=== PATIENT | male | born 1960 | race Caucasian/White ===

== ENCOUNTER 2023-11-28 14:36 | Outpatient (CLI) | payer BC, SELFPAY ==
--- NOTE | ~2023-11-28 | XR_ITS ---
Left foot Technique: AP, oblique, and lateral views were obtained. Clinical History: Pain Findings: No acute fracture or dislocation is seen. Probable chronic, healed fractures of the proxima l third, fourth, and fifth metatarsal shafts.. Joint spaces are preserved without erosive or degenera tive change. Soft tissues are unremarkable. Impression: No acute abnormality evident. Probable chronic healed fracture deformities of the third, fourth, fifth proximal metatarsal shafts. Reviewed, dictated and finalized at location M. Impression: No acute abnormality evident. Probable chronic healed fracture deformities of the third, fourth, fifth proxim al metatarsal shafts.
== END 2023-11-28 14:37 ==
PROVIDERS: PCP Family Medicine; Visit Provider Family Medicine
DX: M79.672 Pain in left foot (principal)
CPT/HCPCS: 73630

== ENCOUNTER 2024-02-19 01:05 | Day surgery (SDC) | payer BC, SELFPAY ==
[2024-01-30 08:47] VITALS: BMI 46.1
[2024-02-19 11:08] VITALS: BP 139/82; PULSE 71; RESP 16; TEMP 36.2; O2SAT 100
[2024-02-19] MEDS: LACTATED RINGERS 1,000 ML 150 ML IV CONT (11:15)
--- NOTE | 2024-02-19 11:37 | WPDANESEPPF ---
Anes - Initial Pre Proc Eval Procedure: Operation Date: 02/19/24 12:30 Proposed Procedures p Screening Colonoscopy - Jarvis Tolentino DO Date/Time: 02/19/24 11:37 Surgeon: Jarvis Tolentino DO Pre Op Diagnosis: Screening for malignant neoplasm of colon Patient Data Age: 63 Gender: M Height: 1.78 m Weight: 141.3 kg Last Vital Signs Temp 97.1 F L 02/19/24 11:08 Pulse 71 02/19/24 11:08 Resp 16 02/19/24 11:08 BP 139/82 02/19/24 11:08 Pulse Ox 100 02/19/24 11:08 O2 Del Method Room Air 02/19/24 11:08 Allergies Allergy/AdvReac Type Severity Reaction Status Date / Time No Known Allergies Allergy Unknown NONE Verified 02/19/24 11:05 Home Medications Medication Instructions Recorded Confirmed Type nystatin 100,000 unit/gram topical 1 applic topical BID gluteal cleft 11/29/23 01/30/24 Rx powder rash #60 grams syringe with needle, safety 3 mL #14 ea 01/30/24 01/30/24 Rx 23 gauge x 1 (BD Integra Syringe) testosterone cypionate 200 mg/mL 200 mg IM .every 2 weeks #10 mL 01/30/24 02/19/24 Rx intramuscular oil (Depo-Testosterone) tirzepatide (weight loss) 5 mg/0.5 5 mg (0.5 mL) subcut WEEKLY #2 mL 01/30/24 02/19/24 Rx mL subcutaneous pen injector (Zepbound) Patient hx anesthesia problems: none Family hx anesthesia problems: none Results Review: All pre-operative results and documents have been reviewed as part of the pre-operative evaluation. [facility] Family History Family History (Updated 11/28/23 @ 13:24 by Dianelys Galeano CMA) Father Cancer of gallbladder Hypertension Mother Breast cancer Depression Anxiety Sibling Alcoholism Sibling Depression Anxiety Son Asthma Grandparent Heart problem Grandparent Cerebrovascular accident Social History Social History Smoking status: Never smoker Alcohol intake: current Drinks per week: 2 Substance use: never Substance use type: does not use Do You Feel Safe in your Home?: Yes Lack of Transportation: No Lack of Food: Never True Current Housing: I Have Housing Concerned About Future Housing: No Difficulty Paying Gas/Electric Bills: No Difficulty Paying for Meds: No Currently Unemployed: No Education: High School Diploma/GED Difficulty w/ Childcare or Family Care: No Living arrangements: with family Occupation/Education: occupation Additional occupation/education comments: [employer] Gender identity (if verbalized by the patient): Male Sexual Orientation (if Verbalized by the Patient): Straight or Heterosexual Spiritual care concerns: No Agree to blood products: Yes Anes - Eval Final PreProcedure Day of Procedure 02/19/24 11:37 Patient weight: normal Heart: regular rate and rhythm Lungs: clear to auscultation Airway: Mallampati scale class II Neurological: alert and oriented Last oral intake: >/= 8 hours ASA classification: III Emergent: no Anesthetic plan: proceed Anesthesia type and monitoring: general GIVS and standard monitoring Results Review: All pre-operative results and documents have been reviewed as part of the pre-operative evaluation. Informed Consent: The patient's anesthetic plan and its attendant risks and benefits were discussed with the patient/family/POA. Questions were solicited and answers provided to the satisfaction of the patient/family/POA.
--- NOTE | 2024-02-19 12:58 | PM.IMHP ---
H&P: HPI History of Present Illness Date/Time: 02/19/24 12:58 Chief Complaint: Screening for colorectal cancer Narrative: 63 yo man presents for colonoscopy. He has had colonoscopies in the past which only showed internal hemorrhoids. He denies any family hx of colon cancer. Review of Systems Review of Systems: All systems reviewed & are unremarkable except as noted in HPI and below Constitutional: Constitutional: Denies chills, Denies fever(s), Denies headache(s) and Denies weight loss Eyes: Eyes: Denies change in vision ENT: Denies dizziness, Denies headache(s), Denies neck mass and Denies throat swelling Cardiovascular: Cardiovascular: Denies chest pain, Denies lightheadedness and Denies dyspnea Respiratory: Respiratory: Denies cough, Denies dyspnea and Denies wheezing Gastrointestinal: Gastrointestinal: Denies abdominal pain, Denies change in bowel habits, Denies nausea and Denies vomiting Genitourinary: Genitourinary: Denies hematuria and Denies dysuria Musculoskeletal: Musculoskeletal: Reports as per HPI Integumentary/Breasts: Skin/Breast: Reports as per HPI Neurologic: Denies dizziness and Denies headache(s) Allergic/Immunologic: Allergic/Immunologic: Denies throat swelling and Denies wheezing [facility] Family History Family History (Updated 11/28/23 @ 13:24 by Dianelys Galeano CMA) Father Cancer of gallbladder Hypertension Mother Breast cancer Depression Anxiety Sibling Alcoholism Sibling Depression Anxiety Son Asthma Grandparent Heart problem Grandparent Cerebrovascular accident Social History Social History Smoking status: Never smoker Alcohol intake: current Drinks per week: 2 Substance use: never Substance use type: does not use Do You Feel Safe in your Home?: Yes Lack of Transportation: No Lack of Food: Never True Current Housing: I Have Housing Concerned About Future Housing: No Difficulty Paying Gas/Electric Bills: No Difficulty Paying for Meds: No Currently Unemployed: No Education: High School Diploma/GED Difficulty w/ Childcare or Family Care: No Living arrangements: with family Occupation/Education: occupation Additional occupation/education comments: [employer] Gender identity (if verbalized by the patient): Male Sexual Orientation (if Verbalized by the Patient): Straight or Heterosexual Spiritual care concerns: No Agree to blood products: Yes Meds Home Medications and Allergies Home Medications Medication Instructions Recorded Confirmed Type nystatin 100,000 unit/gram topical 1 applic topical BID gluteal cleft 11/29/23 01/30/24 Rx powder rash #60 grams syringe with needle, safety 3 mL #14 ea 01/30/24 01/30/24 Rx 23 gauge x 1 (BD Integra Syringe) testosterone cypionate 200 mg/mL 200 mg IM .every 2 weeks #10 mL 01/30/24 02/19/24 Rx intramuscular oil (Depo-Testosterone) tirzepatide (weight loss) 5 mg/0.5 5 mg (0.5 mL) subcut WEEKLY #2 mL 01/30/24 02/19/24 Rx mL subcutaneous pen injector (Zepbound) Allergies Allergy/AdvReac Type Severity Reaction Status Date / Time No Known Allergies Allergy Unknown NONE Verified 02/19/24 11:05 Vital Signs Vital Signs - 24 hr 02/19/24 11:08 Temperature 36.2 C L Pulse Rate 71 Respiratory Rate 16 Blood Pressure 139/82 Pulse Oximetry 100 Oxygen Delivery Room Air Exam Const: General: no acute distress and alert Orientation/consciousness: patient oriented x3 HENMT: Head: normocephalic and atraumatic Ears: hearing grossly normal bilaterally Face/Nose/Sinus: Normal nares present Mouth: Yes Normal oral and palatal mucosa present Eyes: Periorbital: periorbital findings normal Sclera: sclerae normal EOM: EOMs intact bilaterally Neck: Neck: normal visual inspection, no lymphadenopathy and trachea midline Chest: Chest palpation & inspection: normal inspection of
[2024-02-19 13:27] VITALS: BP 111/61; PULSE 68; RESP 17; O2SAT 97
[2024-02-19 13:37] VITALS: BP 109/74; BP 116/70; PULSE 63; PULSE 68; RESP 16; O2SAT 99
== END 2024-02-19 13:58 | disposition home or self-care (01) ==
PROVIDERS: PCP Family Medicine; Visit Provider Surgery
PROC: 0DJD8ZZ Inspection of Lower Intestinal Tract, Via Natural or Artificial Opening Endoscopic (ICD-10-PCS; CPT 45378; principal; 2024-02-19 12:30)
DX: Z12.11 Encounter for screening for malignant neoplasm of colon (principal); Z79.85 Long-term (current) use of injectable non-insulin antidiabetic drugs; Z79.890 Hormone replacement therapy
CPT/HCPCS: 45378; J2704; J7120

== ENCOUNTER 2024-03-13 13:26 | Emergency (ER) | payer BC, SELFPAY ==
--- NOTE | ~2024-03-13 | XR_ITS ---
XR foot RT min 3V Ordering provider: Yudi Manzano NP History: . injury . Comparison: None. FINDINGS: BONES: Fracture in the proximal metaphysis of the fifth metatarsal bone. Highly suggestive fracture a t the base of the medial metatarsal bone. Possibility of fracture in the base of the second and four th metatarsal bones is not excluded. JOINT SPACES: Osteoarthritic changes of the proximal and distal interphalangeal joints. No tarsal coa lition. SOFT TISSUES: Normal. Calcaneus spur. IMPRESSION: Fracture in the proximal diaphysis of the fifth metatarsal bone. Possible fractures at the base of the second, third and fourth metatarsal bones. Follow-up advised. Reviewed, dictated and finalized at location A. IMPRESSION: Fracture in the proximal diaphysis of the fifth metatarsal bone. Possible fractures at the base of the second, third and fourth metatarsal bones . Follow-up advised.
[2024-03-13 13:34] VITALS: BP 127/83; PULSE 79; RESP 20; TEMP 36.8; O2SAT 96
--- NOTE | 2024-03-13 13:57 | ED.LOWEXIN ---
HPI - Extremity Injury (Lower) General Chief Complaint: Extremity Injury, Lower Stated Complaint: right foot injury Time Seen by Provider: 03/13/24 13:57 Source: patient Mode of arrival: ambulatory Limitations: no limitations History of Present Illness HPI Narrative: 63 yo M presents with c/o pain to R foot. Pt fell down two steps today while walking out to his garage. No pain to R foot when at rest, only painful when bearing weight. distal NV intact. all systems reviewed and negative except as noted above. Related Data Allergies Allergy/AdvReac Type Severity Reaction Status Date / Time No Known Allergies Allergy Unknown NONE Verified 02/19/24 11:05 Review of Systems Review of Systems: CONSTITUTIONAL: Denies fever, chills, or sweats. EYES: Denies visual changes, redness, or discharge. ENT: Denies rhinorrhea, congestion, sore throat, or otalgia. CARDIOVASCULAR: Denies chest pain, palpitations, or edema. RESPIRATORY: Denies cough or dyspnea. GASTROINTESTINAL: Denies abdominal pain, nausea, vomiting, or diarrhea. GENITOURINARY: Denies dysuria or hematuria. SKIN: Denies rash or itching. MUSCULOSKELETAL: Denies back pain, joint pain, or myalgia. Reports pain to right foot. NEUROLOGIC: Denies headache, numbness, or weakness. PSYCHIATRIC: Denies anxiety or depression. All other systems reviewed are negative, except as documented in HPI. [facility] Family History Family History (Updated 11/28/23 @ 13:24 by Dianelys Galeano CMA) Father Cancer of gallbladder Hypertension Mother Breast cancer Depression Anxiety Sibling Alcoholism Sibling Depression Anxiety Son Asthma Grandparent Heart problem Grandparent Cerebrovascular accident Social History Social History Smoking status: Never smoker Alcohol intake: current Drinks per week: 2 Substance use: never Substance use type: does not use Do You Feel Safe in your Home?: Yes Lack of Transportation: No Lack of Food: Never True Current Housing: I Have Housing Concerned About Future Housing: No Difficulty Paying Gas/Electric Bills: No Difficulty Paying for Meds: No Currently Unemployed: No Education: High School Diploma/GED Difficulty w/ Childcare or Family Care: No Living arrangements: with family Occupation/Education: occupation Additional occupation/education comments: [employer] Gender identity (if verbalized by the patient): Male Sexual Orientation (if Verbalized by the Patient): Straight or Heterosexual Spiritual care concerns: No Agree to blood products: Yes Comments At time of signature, agree with nursing past medical, surgical, social and family history. There is no relevant family history pertinent to the presenting complaint. Exam Narrative: GENERAL: This is a well-nourished, well-developed patient, in no apparent distress. HEAD: normocephalic, atraumatic. EYES: PERRL. Sclera clear/white. Vision is grossly intact. EARS: External ears normal NOSE: External nose normal NECK: Neck supple, non-tender without lymphadenopathy, masses or thyromegaly. CARDIOVASCULAR: Regular rate and rhythm without murmurs, gallops, or rubs. RESPIRATORY: Clear to auscultation. Breath sounds equal bilaterally. No wheezes, rales, or rhonchi. SKIN: warm, Dry, intact with no suspicious lesions or rash, good texture and turgor. NEURO: awake, alert, and oriented to person, place and time. There were no obvious focal neurologic abnormalities. EXTREMITIES: Tenderness to lateral aspect of right foot over 4th and 5th metatarsals. Mild swelling noted. Distal neurovascularly intact. Range of motion decreased due to pain. No deformity noted. BACK: Nontender without deformity. Course Course Level of Care: Express Care Visit Vital Signs Vital signs: Vital Signs Temperature 36.8 C 03/13/24 13:34 Pulse Rate 79 03/13/24 13:34 Respiratory
== END 2024-03-13 15:18 | disposition home or self-care (01) ==
PROVIDERS: Emergency Provider Nurse Practitioner Family; PCP Family Medicine
DX: S92.351A Displaced fracture of fifth metatarsal bone, right foot, initial encounter for closed fracture (principal); W10.9XXA Fall (on) (from) unspecified stairs and steps, initial encounter
CPT/HCPCS: 29515; 73630; 99214; G0463

== ENCOUNTER 2024-03-17 13:42 | Outpatient (CLI) | payer BC, SELFPAY ==
--- NOTE | ~2024-03-17 | XR_ITS ---
Right foot Technique: AP, oblique, and lateral views were obtained. Clinical History: Pain COMPARISON: 03/13/2024 Findings: Transverse fracture the fifth metatarsal shaft is unchanged. No other definite fracture see n. Joint spaces are preserved without erosive or degenerative change. Soft tissues are unremarkable. Impression: Stable transverse fracture of the fifth metatarsal shaft. Reviewed, dictated and finalized at location . Impression: Stable transverse fracture of the fifth metatarsal shaft.
== END 2024-03-17 13:43 | disposition home or self-care (01) ==
LOC: ANHBWCIMG 13:44
PROVIDERS: PCP Family Medicine; Visit Provider Orthopaedic Surgery
DX: S92.354D Nondisplaced fracture of fifth metatarsal bone, right foot, subsequent encounter for fracture with routine healing (principal); X58.XXXD Exposure to other specified factors, subsequent encounter
CPT/HCPCS: 73630

== ENCOUNTER 2024-04-07 12:46 | Outpatient (CLI) | payer BC, SELFPAY ==
--- NOTE | ~2024-04-07 | XR_ITS ---
Right foot Technique: AP, oblique, and lateral views were obtained. Clinical History: Fracture COMPARISON: 02/19/2024 Findings: Transverse fracture the midshaft of the fifth metatarsal again present, with stable alignme nt. Mild osteolysis as compared to prior exam, compatible early fracture healing. Soft tissues are un remarkable. Impression: Probable early healing changes of transverse fracture of the fifth metatarsal shaft. Reviewed, dictated and finalized at location M. Impression: Probable early healing changes of transverse fracture of the fifth metatarsal s haft.
== END 2024-04-07 12:47 | disposition home or self-care (01) ==
LOC: ANHBWCIMG 12:47
PROVIDERS: PCP Family Medicine; Visit Provider Orthopaedic Surgery
DX: M79.671 Pain in right foot (principal)
CPT/HCPCS: 73630

== ENCOUNTER 2024-05-19 12:39 | Outpatient (CLI) | payer BC, SELFPAY ==
--- NOTE | ~2024-05-19 | XR_ITS ---
XR foot RT min 3V Ordering provider: Surjit Gunderson MD History: . M79.671 - Pain in right foot - FOLLOW UP . Comparison: April 07, 2024 FINDINGS: BONES: Fracture in the midshaft of the fifth metatarsal bone unchanged from previous examination. JOINT SPACES: Narrowing of the proximal and distal interphalangeal joints. No tarsal coalition. SOFT TISSUES: Normal. Calcaneus spur. IMPRESSION: Fracture of the midshaft of the fifth metatarsal bone unchanged. Reviewed, dictated and finalized at location A. 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
== END 2024-05-19 12:40 | disposition home or self-care (01) ==
PROVIDERS: PCP Family Medicine; Visit Provider Orthopaedic Surgery
DX: S92.351A Displaced fracture of fifth metatarsal bone, right foot, initial encounter for closed fracture (principal); X58.XXXA Exposure to other specified factors, initial encounter
CPT/HCPCS: 73630

== ENCOUNTER 2024-05-24 09:55 | Emergency (ER) | payer BC, SELFPAY ==
--- NOTE | ~2024-05-24 | XR_ITS ---
EXAMINATION: XR pelvis 1-2V DATE: 05/24/2024 11:11 INDICATION: Foreign body. TECHNIQUE: 3 views of the pelvis on 3 radiographs were obtained. COMPARISON: None. FINDINGS: Alignment is normal. No acute fracture. There is mild osteoarthritis of the hips. There is mild lumbar spondylosis. IMPRESSION: 1. No radiopaque foreign body. Reviewed, dictated and finalized at location A. L TENDER
[2024-05-24 10:03] VITALS: BP 129/80; PULSE 71; RESP 18; TEMP 36.7; O2SAT 99
--- NOTE | 2024-05-24 11:48 | ED.SKABFB ---
HPI - Skin/Abscess/Foreign Bdy General Chief complaint: Skin/Abscess/Foreign Body Stated complaint: needle in buttock Time Seen by Provider: 05/24/24 11:21 History of Present Illness HPI narrative: 63-year-old male presenting with concern for a needle in his butt. His was administering a testosterone shot to his buttocks and became concerned that the needle disappeared. Patient denies any complaints. Related Data Allergies Allergy/AdvReac Type Severity Reaction Status Date / Time No Known Allergies Allergy Unknown NONE Verified 05/24/24 10:11 Review of Systems Review of Systems: All systems reviewed & are unremarkable except as noted in HPI and below PMFSH Past Medical History Medical History Cavovarus deformity of foot Family History Family History Father Cancer of gallbladder Hypertension Mother Breast cancer Depression Anxiety Sibling Alcoholism Sibling Depression Anxiety Son Asthma Grandparent Heart problem Grandparent Cerebrovascular accident Social History Social History Social History: caffeine use Smoking status: Never smoker Alcohol intake: current Drinks per week: 2 Substance use: never Substance use type: does not use Do You Feel Safe in your Home?: Yes Lack of Transportation: No Lack of Food: Never True Current Housing: I Have Housing Concerned About Future Housing: No Difficulty Paying Gas/Electric Bills: No Difficulty Paying for Meds: No Currently Unemployed: No Education: High School Diploma/GED Difficulty w/ Childcare or Family Care: No Living arrangements: with family Occupation/Education: occupation Additional occupation/education comments: [employer] Gender identity (if verbalized by the patient): Male Sexual Orientation (if Verbalized by the Patient): Straight or Heterosexual Spiritual care concerns: No Agree to blood products: Yes Exam Narrative: GENERAL: Well-appearing, well-nourished, and in no acute distress. HEAD: Normocephalic, atraumatic. EYES: PERRLA and EOMI. ENT: Grossly unremarkable NECK: Supple. CHEST: No respiratory distress. HEART: Regular rate and rhythm EXTREMITIES: Normal range of motion SKIN: Warm, dry, no rash. NEURO: Alert and oriented x3. PSYCH: Normal mood and affect. Course Vital Signs Vital signs: Vital Signs Temperature 98.0 F 05/24/24 10:03 Pulse Rate 71 05/24/24 10:03 Respiratory Rate 18 05/24/24 10:03 Blood Pressure 129/80 05/24/24 10:03 Pulse Oximetry 99 05/24/24 10:03 Oxygen Delivery Room Air 05/24/24 10:03 Temperature 98.0 F 05/24/24 10:03 Pulse Rate 71 05/24/24 10:03 Respiratory Rate 18 05/24/24 10:03 Blood Pressure 129/80 05/24/24 10:03 Pulse Oximetry 99 05/24/24 10:03 Oxygen Delivery Room Air 05/24/24 10:03 MDM - Skin/Abscess/Foreign Bdy MDM Narrative Medical decision making narrative: 63-year-old male presenting with concern for foreign body in his buttocks after a testosterone shot. Vitals stable. Exam remarkable for the above. X-ray reveals no foreign body. Patient is safe for discharge. Discharged in stable condition. Discharge Plan Discharge Clinical Impression: No foreign body found on evaluation Patient Disposition: Home, Self-Care Condition: Stable Instructions: Antibiotic Form Additional Instructions: There is no foreign body on your x-ray. If your symptoms worsen or other concerning symptoms arise, please return to the ER. Prescriptions: No Action Zepbound 5 mg/0.5 mL pen injector 5 mg subcut WEEKLY Qty: 2 0RF Rx Instructions: Saturdays testosterone cypionate [Depo-Testosterone] 200 mg/mL oil 200 mg IM .every 2 weeks Qty: 10 0RF (DME) BD Integra Syringe 3 mL 23 gauge x 1 syringe See Rx Instructions .Route Qty: 14 1RF Rx Instructions: As directed nystatin 100,000 unit/gram powder 1 applic topical BID Qty: 60 1RF Zepbound 7.5 mg/0.5 mL pen injector 7.5 mg subcut WEEKLY Qty: 2 0RF Zepbound 10 mg/0.5 mL pen injector 10 mg subcut WEEKLY Qty: 2 0RF Zepbound 12.5 mg/0.5 mL pen injector 12.5 mg subcut WEEKLY Qty: 2 0RF Follow-up/Referrals: Jarocho Parmar MD [Primary Care Provider] -
== END 2024-05-24 11:57 | disposition home or self-care (01) ==
PROVIDERS: Emergency Provider Emergency Medicine; PCP Family Medicine
DX: Z03.823 Encounter for observation for suspected inserted (injected) foreign body ruled out (principal); Z79.85 Long-term (current) use of injectable non-insulin antidiabetic drugs; Z79.890 Hormone replacement therapy
CPT/HCPCS: 72170; 99283